=== PATIENT | female | born 2000 | race Two or more races ===

== ENCOUNTER 2023-04-21 20:52 | Emergency (ER) | payer MEDICAID, OTHER ==
[~2023-04-21] VITALS: Ht 160 cm; Wt 62.8 kg
[2023-04-21 22:56] VITALS: BP 119/80
== END 2023-04-22 00:02 | disposition home or self-care (01) ==
LOC: ER 20:55
DX: S80.261A Insect bite (nonvenomous), right knee, initial encounter (principal); F12.10 Cannabis abuse, uncomplicated; W57.XXXA Bitten or stung by nonvenomous insect and other nonvenomous arthropods, initial encounter; Y93.89 Activity, other specified; Y92.89 Other specified places as the place of occurrence of the external cause; Y99.8 Other external cause status

== ENCOUNTER 2024-01-31 16:03 | Emergency (ER) | payer MEDICAID ==
[~2024-01-31] VITALS: Ht 160 cm; Wt 64.6 kg
[2024-01-31 16:19] VITALS: BP 133/89; PULSE 88; RESP 20; O2SAT 98
[2024-01-31] MEDS ORDERED: AZITTAB PO (19:27)
[2024-01-31] MEDS ORDERED: PROM1SOL4 PO (19:27)
[2024-01-31] MEDS ORDERED: MONT-8 PO (19:27)
== END 2024-01-31 19:37 | disposition home or self-care (01) ==
LOC: ER 16:03
DX: J06.9 Acute upper respiratory infection, unspecified (principal); F12.10 Cannabis abuse, uncomplicated